=== PATIENT | female | born 1955 | race Caucasian/White ===

== ENCOUNTER 2020-01-18 13:30 | Inpatient (IN) | payer OTHER ==
[~2020-01-18] VITALS: Ht 160 cm; Wt 54.4 kg
[2020-01-18] MEDS ORDERED: ONDANSETRON HCL 4MG/2ML INJ IV STA (14:34)
[2020-01-18] MEDS ORDERED: SODIUM CHLORIDE 0.9% 1,000 ML IV ONE (14:45)
[2020-01-18] MEDS ORDERED: SODIUM CHLORIDE 0.9% 1000ML BAG (SEPSIS BOLUS) IV ONE (15:15)
[2020-01-18] MEDS ORDERED: ACETAMINOPHEN 500MG TABLET PO ONE (15:15)
[2020-01-18] MEDS ORDERED: CEFTRIAXONE 1 G PREMIX 50 ML IV ONE (15:15)
[2020-01-18 15:17] LABS: HEMOGLOBIN. 13.2 g/dL (12.0-16.0); MEAN CORPUSCULAR HEMOGLOBIN 30.2 pg (28.0-32.0); MEAN CORPUSCULAR VOLUME 91.3 fL (81.0-99.0); MEAN PLATELET VOLUME 9.8 fl (7.4-10.4); PLATELET 262 x1000/uL (130-400); RED BLOOD CELL COUNT 4.38 mill/uL (4.2-5.4)
[2020-01-18 15:18] LABS: CHLORIDE 99 mEq/L (98-107)
[2020-01-18 15:21] LABS: PROTHROMBIN TIME 10.8 sec (9.6-11.0)
[2020-01-18 16:48] LABS: PLATELET ESTIMATE NORMAL
[2020-01-19] MEDS: AZITHROMYCIN 500 MG in DEXT 5% WATER 250 ML IV SCH ×2 (00:30→22:56)
[2020-01-19] MEDS ORDERED: ACETAMINOPHEN 325MG TABLET PO PRN (08:00)
[2020-01-19] MEDS ORDERED: ONDANSETRON HCL 4MG/2ML INJ IV PRN (08:00)
[2020-01-19] MEDS ORDERED: DIPHENHYDRAMINE 50MG/ML VIAL IV PRN (08:00)
[2020-01-19] MEDS ORDERED: CLONIDINE 0.1MG TABLET PO PRN (08:00)
[2020-01-19] MEDS: SODIUM CHLORIDE 0.9% 1,000 ML IV SCH (08:18)
[2020-01-19 08:55] LABS: BASOPHILS % 0.1 % (0.0-2.0); EOSINOPHILS % 0.1 % (0.0-5.0); HEMATOCRIT. 34.2 % (36.0-48.0); HEMOGLOBIN. 11.5 g/dL (12.0-16.0); LYMPHOCYTES % 13.8 % (20.0-50.0); MEAN CORPUSCULAR HEMOGLOBIN 30.9 pg (28.0-32.0); MEAN CORPUSCULAR VOLUME 91.5 fL (81.0-99.0); MEAN PLATELET VOLUME 9.1 fl (7.4-10.4); MONOCYTES % 3.6 % (2.0-8.0); NEUTROPHILS % 82.4 % (40.0-76.0); PLATELET 219 x1000/uL (130-400); RED BLOOD CELL COUNT 3.74 mill/uL (4.2-5.4); RED CELL DISTRIBUTION WIDTH 13.7 % (11.6-14.6)
[2020-01-19 09:00] LABS: CHLORIDE 107 mEq/L (98-107)
[2020-01-19] MEDS: ENOXAPARIN 40MG/0.4ML SYR SUBCUT SCH (09:00)
[2020-01-19] MEDS: INSULIN LISPRO 100 UNITS/ML SUBCUT SCH ×4 (09:12→21:28)
[2020-01-19] MEDS ORDERED: DEXTROSE 50% WATER 50ML SYRINGE IV PRN (09:15)
[2020-01-19 09:38] LABS: C REACTIVE PROTEIN CARDIAC > 190.00 mg/L (0.00-3.00)
[2020-01-19] MEDS: BLOOD SUGAR DIAGNOSTIC STRIP TEST SCH ×4 (10:01→21:18)
[2020-01-19] MEDS: CEFTRIAXONE 1,000 MG in DEXTROSE 5% WATER 50 ML IV SCH (16:59)
[2020-01-19] MEDS ORDERED: POTASSIUM CHLORIDE 20MEQ TABLET SR PO NR (20:15)
[2020-01-19] MEDS ORDERED: SODIUM CHLORIDE 0.9% 500 ML IV NR (20:15)
[2020-01-20] MEDS: SODIUM CHLORIDE 0.9% 1,000 ML IV SCH (04:51)
[2020-01-20 06:09] LABS: BASOPHILS % 0.6 % (0.0-2.0); HEMATOCRIT. 29.4 % (36.0-48.0); HEMOGLOBIN. 10.1 g/dL (12.0-16.0); LYMPHOCYTES % 15.1 % (20.0-50.0); MEAN CORPUSCULAR HEMOGLOBIN 31.3 pg (28.0-32.0); MEAN CORPUSCULAR VOLUME 90.7 fL (81.0-99.0); MONOCYTES % 4.5 % (2.0-8.0); NEUTROPHILS % 78.8 % (40.0-76.0); PLATELET 209 x1000/uL (130-400); RED BLOOD CELL COUNT 3.24 mill/uL (4.2-5.4)
[2020-01-20 06:12] LABS: CHLORIDE 109 mEq/L (98-107)
[2020-01-20 06:20] LABS: LDL CHOLESTEROL 97 mg/dL (5-100)
[2020-01-20 06:21] LABS: HDL CHOLESTEROL 29 mg/dL (40-59)
[2020-01-20] MEDS: BLOOD SUGAR DIAGNOSTIC STRIP TEST SCH ×4 (06:38→21:00)
[2020-01-20 09:45] VITALS: BP 119/55
[2020-01-20] MEDS: ENOXAPARIN 40MG/0.4ML SYR SUBCUT SCH (10:33)
[2020-01-20 12:00] VITALS: BP 109/44
[2020-01-20] MEDS: INSULIN LISPRO 100 UNITS/ML SUBCUT SCH ×3 (12:40→21:00)
[2020-01-20 15:56] VITALS: BP 119/55
[2020-01-20 16:00] VITALS: BP 111/40
[2020-01-20] MEDS ORDERED: GLIP5TAB12 MT (16:20)
[2020-01-20] MEDS ORDERED: METF-414 MT (16:20)
[2020-01-20] MEDS ORDERED: ASPI-1158 MT (16:20)
[2020-01-20] MEDS ORDERED: GLIM4TAB36 MT (16:20)
[2020-01-20] MEDS ORDERED: *PATIENT'S OWN MEDICATION STORAGE XX SCH (16:30)
[2020-01-20] MEDS: CEFTRIAXONE 1,000 MG in DEXTROSE 5% WATER 50 ML IV SCH (17:46)
[2020-01-20 18:10] LABS: HEPATITIS B SURFACE ANTIGEN NEGATIVE
[2020-01-20 18:40] LABS: HEPATITIS A AB IGM NEGATIVE (NEGATIVE)
[2020-01-20 20:00] VITALS: BP 110/49
[2020-01-20] MEDS: LACTOBACILLUS GG CAPSULE PO SCH (20:52)
[2020-01-20] MEDS: METRONIDAZOLE 500 MG PREMIX 100 ML IV SCH (21:31)
[2020-01-21] VITALS: BP 113/51
[2020-01-21 04:00] VITALS: BP 109/48
[2020-01-21] MEDS: METRONIDAZOLE 500 MG PREMIX 100 ML IV SCH ×2 (05:39→13:22)
[2020-01-21] MEDS: BLOOD SUGAR DIAGNOSTIC STRIP TEST SCH ×2 (06:10→12:10)
[2020-01-21] MEDS: INSULIN LISPRO 100 UNITS/ML SUBCUT SCH ×2 (06:32→13:26)
[2020-01-21 06:55] LABS: BASOPHILS % 0.5 % (0.0-2.0); EOSINOPHILS % 1.1 % (0.0-5.0); HEMATOCRIT. 30.1 % (36.0-48.0); HEMOGLOBIN. 10.4 g/dL (12.0-16.0); LYMPHOCYTES % 25.4 % (20.0-50.0); MEAN CORPUSCULAR HEMOGLOBIN 31.1 pg (28.0-32.0); MEAN CORPUSCULAR VOLUME 90.2 fL (81.0-99.0); MEAN PLATELET VOLUME 9.1 fl (7.4-10.4); MONOCYTES % 6.7 % (2.0-8.0); NEUTROPHILS % 66.3 % (40.0-76.0); PLATELET 221 x1000/uL (130-400); RED BLOOD CELL COUNT 3.34 mill/uL (4.2-5.4); RED CELL DISTRIBUTION WIDTH 13.5 % (11.6-14.6)
[2020-01-21 06:57] LABS: CHLORIDE 108 mEq/L (98-107)
[2020-01-21 08:00] VITALS: BP 112/50
[2020-01-21] MEDS: LACTOBACILLUS GG CAPSULE PO SCH (08:56)
[2020-01-21] MEDS: ENOXAPARIN 40MG/0.4ML SYR SUBCUT SCH (08:57)
[2020-01-21] MEDS ORDERED: POTASSIUM CHLORIDE 20MEQ TABLET SR PO NR (09:00)
[2020-01-21 12:00] VITALS: BP 123/62
[2020-01-21] MEDS ORDERED: METR500T MT (15:02)
[2020-01-21 15:36] VITALS: BP 137/61
[2020-01-21 16:00] VITALS: BP 137/61
[2020-01-21] MEDS: CEFTRIAXONE 1,000 MG in DEXTROSE 5% WATER 50 ML IV SCH (16:05)
== END 2020-01-21 16:55 | disposition home or self-care (01) | DRG 871 ==
LOC: ER 13:30 → MICUSO 18:24 → EDBEDREQTM 18:41 → EDBEDREQ 18:41 → 7EST 01-20 07:43 → MICUSO 01-20 07:51 → 8WST 01-20 08:06
PROVIDERS: ADMIT Internal Medicine; ATTEND Internal Medicine
DX: A41.9 Sepsis, unspecified organism (principal); J18.9 Pneumonia, unspecified organism; E87.2 Acidosis; R17 Unspecified jaundice; K92.1 Melena; Z20.828 Contact with and (suspected) exposure to other viral communicable diseases; K52.9 Noninfective gastroenteritis and colitis, unspecified; R74.01 Elevation of levels of liver transaminase levels; D64.9 Anemia, unspecified; E11.9 Type 2 diabetes mellitus without complications; F17.200 Nicotine dependence, unspecified, uncomplicated; I95.9 Hypotension, unspecified; E87.8 Other disorders of electrolyte and fluid balance, not elsewhere classified; Z90.49 Acquired absence of other specified parts of digestive tract; Z79.899 Other long term (current) drug therapy
CPT/HCPCS: 36415; 71045; 74176; 76705; 80048; 80053; 80061; 82248; 82270; 82728; 82962; 83036; 83605; 83615; 83880; 84145; 84443; 84484; 85025; 85379; 86141; 86705; 86709; 86803; 87340; 87493; 87635; 93005; 96374; 99291; J0456; J0696; J1650; J1815; J2405; J3490; J7030; J7060